=== PATIENT | male | born 1970 | race Caucasian/White ===

== ENCOUNTER 2020-05-21 07:30 | Emergency (ER) | payer SELFPAY ==
[~2020-05-21] VITALS: Ht 188 cm; Wt 145.0 kg
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
--- NOTE | 2020-05-21 08:38 | RAD ---
EXAM: CHEST 1 VIEW History: Shoulder pain COMPARISON: None available. TECHNIQUE: Single portable radiograph of the chest FINDINGS: Mild cardiomegaly. Mild bibasilar lung atelectasis or infiltrates. The costophrenic sulci are clear and well demarcated. IMPRESSION: Mild bibasilar lung atelectasis or infiltrates. Electronically signed by: Lester Thompson MD (05/21/2020 8:36 AM) [id number]
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
[2020-05-21 09:00] VITALS: BP 158/83
[2020-05-21 09:09] LABS: BASO # 0.1 x10^3/uL (0.0-0.2); BASO % 1 % (0-3); EOS # 0.3 x10^3/uL (0.0-0.7); EOS % 3 % (0-3); HEMATOCRIT 44.5 % (39.0-53.0); HEMOGLOBIN 15.1 g/dL (13.0-17.5); LYMPH # 1.7 x10^3/uL (1.0-4.8); LYMPH % 15 % (24-48); MEAN CORPUSCULAR HEMOGLOBIN 29 pg (25-35); MEAN CORPUSCULAR HGB CONC 34 g/dL (31-37); MEAN CORPUSCULAR VOLUME 84 fL (79-100); MONO # 0.9 x10^3/uL (0.0-1.1); MONO % 8 % (0-9); NEUT # 8.1 x10^3/uL (1.8-7.7); NEUT % 73 % (31-73); PLATELET COUNT 268 x10^3/uL (140-400); RED BLOOD COUNT 5.28 x10^6/uL (4.30-5.70); RED CELL DISTRIBUTION WIDTH 13.8 % (11.5-14.5); WHITE BLOOD COUNT 11.1 x10^3/uL (4.0-11.0)
[2020-05-21 09:12] LABS: CALCIUM 8.7 mg/dL (8.5-10.1); GFR 78.8; POTASSIUM 4.1 mmol/L (3.5-5.1)
--- NOTE | 2020-05-21 09:17 | RAD ---
CT STUDY OF THE ABDOMEN AND PELVIS WITHOUT CONTRAST CLINICAL INDICATIONS: Left-sided low back pain. Possible urinary tract stone. TECHNIQUE: Noncontrast helical CT scanning of the abdomen and pelvis was performed. Without contrast, the sensitivity to detect organ pathology and GI tract pathology is decreased. PQRS compliance Statement One or more of the following individualized dose reduction techniques were utilized for this study: 1. Automated exposure control 2. Adjustment of the mA and/or kV according to patient size 3. Use of iterative reconstruction technique COMPARISON: None available. FINDINGS: The liver and pancreas are unremarkable on this noncontrast study. Spleen is homogeneous bu t enlarged measuring 16.5 cm in length. Gallbladder is normal and no extra hepatic biliary ductal dil atation is seen. No adrenal mass is seen. Nonobstructing punctate stone of the lower pole of the left kidney is seen. No hydronephrosis or hydroureter or ureteral stone is evident. Urinary bladder is no t abnormally distended. Prostate gland measures 5.3 cm transversely. No focal aneurysmal dilatation o f the abdominal aorta is seen. No enlarged abdominal or pelvic lymphadenopathy is evident. The termin al ileum is unremarkable. Surgical clips are seen at the base of the cecum consistent with an appende ctomy. No obstructive bowel pattern is evident. No free air or free fluid or mesenteric edema is seen . There is a consolidative infiltrate within the right lower lobe. This could represent pneumonia. No lytic process is seen. IMPRESSION: Nonobstructing punctate stone of the lower pole of the left kidney. No hydronephrosis or hydroureter or ureteral stone is evident. Mild splenomegaly. Right lower lobe infiltrate which could represent pneumonia. Electronically signed by: Chidi Art MD (05/21/2020 9:14 AM) [place] [id number]
[2020-05-21 09:19] LABS: ALBUMIN 3.4 g/dL (3.4-5.0); ALBUMIN/GLOBULIN RATIO 0.8 (1.0-1.7); TOTAL BILIRUBIN 0.8 mg/dL (0.2-1.0); TOTAL PROTEIN 7.8 g/dL (6.4-8.2)
[2020-05-21] MEDS ORDERED: DOXY100C2 PO (11:43)
[2020-05-21] MEDS ORDERED: CEFP200T PO (11:43)
== END 2020-05-21 12:03 | disposition home or self-care (01) ==
LOC: ER 07:30
DX: G89.11 Acute pain due to trauma (principal); M25.511 Pain in right shoulder; N20.0 Calculus of kidney; L03.317 Cellulitis of buttock; L03.116 Cellulitis of left lower limb; E11.65 Type 2 diabetes mellitus with hyperglycemia; R91.8 Other nonspecific abnormal finding of lung field; M25.512 Pain in left shoulder; I10 Essential (primary) hypertension; Z90.89 Acquired absence of other organs; Z98.890 Other specified postprocedural states; Z87.891 Personal history of nicotine dependence; Z88.1 Allergy status to other antibiotic agents; V98.8XXA Other specified transport accidents, initial encounter; Y93.89 Activity, other specified; Y92.89 Other specified places as the place of occurrence of the external cause; Y99.8 Other external cause status
CPT/HCPCS: 36415; 70450; 71045; 72125; 73030; 74176; 80053; 85025; 99285; G0480